=== PATIENT | male | born 1970 | race Caucasian/White ===

== ENCOUNTER 2020-05-09 10:53 | Outpatient (CLI) | payer MEDICAID | END 2020-05-09 10:54 | disposition critical access hospital (66) | LOC: EMS 10:53 | PROVIDERS: ATTEND Surgery | DX: T14.91XA Suicide attempt, initial encounter (principal); V58.3XXA Unspecified occupant of pick-up truck or van injured in noncollision transport accident in nontraffic accident, initial encounter; Y93.89 Activity, other specified; Y92.008 Other place in unspecified non-institutional (private) residence as the place of occurrence of the external cause | CPT/HCPCS: A0425; A0429 ==

== ENCOUNTER 2020-05-09 11:28 | Emergency (ER) | payer MEDICAID, OTHER ==
--- NOTE | 2020-05-09 11:54 | ED Physician Documentation ---
PD HPI MHE - Stated complaint Stated Complaint: SI - Chief complaint Chief Complaint: MHE - History obtained from History obtained from: Patient, EMS - History of Present Illness Primary symptom: Suicide attempt, Depression, Other (He attempted suicide by a hose from his exhaust into his truck cab in his driveway. Bystanders saw the hose and called EMS and police. They found the patient awake but sleepy. He states he was trying to kill himself was a statement to police. 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 He denies any alcohol or substance abuse. He had gotten some pain pills from a friend and had taken those and attempted suicide by putting a hose from his exhaust into his truck cab.). No: Substance abuse - ETOH, Substance abuse - drugs (He states he did get some opioid tablets from a friend just this past evening. He denies any other recreational drug use.) Similar symptoms before: Has not had sx before Recently seen: Not recently seen (Denies any recent medical visits or counseling. Does not take any daily medicines.) Review of Systems Constitutional: denies: Fever, Chills Nose: denies: Rhinorrhea / runny nose, Congestion Throat: denies: Sore throat Respiratory: denies: Cough GI: denies: Nausea, Vomiting Neurologic: denies: Focal weakness, Numbness, Syncope, Altered mental status, Headache Psychiatric: reports: Depressed. denies: Homicidal, Delusions, Anxiety Immunocompromised: denies: Immunocompromised PD PAST MEDICAL HISTORY - Past Medical History Cardiovascular: Hypertension (not taking meds for years) Respiratory: None Neuro: None Endocrine/Autoimmune: None GI: Other (Diverticulosis) : None - Past Surgical History Past Surgical History: Yes Ortho: Arthroscopic surgery - Present Medications Home Medications: Ambulatory Orders Medication Instructions Recorded Confirmed Cyclobenzaprine [Flexeril] 10 mg PO TID PRN #20 tablet 03/04/16 HYDROcod/ACETAM 5/325 [Fisher 5/325] 1 - 2 ea PO Q6H PRN #20 tablet 03/04/16 - Allergies Allergies/Adverse Reactions: Allergies Allergy/AdvReac Type Severity Reaction Status Date / Time No Known Drug Allergies Allergy Verified 03/04/16 08:57 - Living Situation Living Situation: reports: Alone Living Arrangement: reports: At home - Social History Does the pt smoke?: Yes Smoking Status: Current every day smoker Does the pt drink ETOH?: No Does the pt have substance abuse?: No - Family History Family history: reports: Non contributory PD ED PE NORMAL - Vitals Vital signs reviewed: Yes - General General: Alert and oriented X 3 (slightly sleepy, but conversant. ), No acute distress, Well developed/nourished - HEENT HEENT: Ears normal, Moist mucous membranes, Pharynx benign - Neck Neck: Supple, no meningeal sign, No adenopathy - Cardiac Cardiac: RRR, No murmur - Respiratory Respiratory: Clear bilaterally (Does not have any wheezing nor prolonged expiratory phase.) - Abdomen Abdomen: Soft, Non tender - Derm Derm: Normal color, Warm and dry - Extremities Extremities: Normal ROM s pain, No edema, No calf tenderness / cord - Neuro Neuro: Alert and oriented X 3, proposal manager 2-12 intact, No motor deficit, No sensory deficit, Normal speech Eye Opening: Spontaneous Motor: Obeys Commands Verbal: Oriented GCS Score: 15 - Psych Psych: Normal mood (depressed). No: Normal affect (flat, depressed) Results - Vitals Vitals: Vital Signs - 24 hr 05/09/20 05/09/20 05/09/20 11:29 11:53 12:23 Temperature 37 C Heart Rate 84 89 89 Respiratory 16 23 14 Rate Blood Pressure 150/103 H 161/101 H 146/105 H O2 Saturation 92 100 100 05/09/20 05/09/20 05/09/20 12:30 13:00 13:30 Temperature Heart Rate 87 76 80 Respiratory 12 12 12 Rate Blood Pressure 159/100 H 162/137 H 187/164 H O2 Saturation 99 95 93 05/09/20 05/09/20 05/09/20 14:00 14:30 15:00 Temperature Heart Rate 84 69 80 Respiratory 16 14 19 Rate Blood Pressure 169/94 H 128/105 H 144/116 H O2 Saturation 92 94 96 05/09/20 05/09/20 15:30 16:00 Temperature Heart Rate 79 72 Respiratory 15 15 Rate Blood Pressure 156/103 H 153/116 H O2 Saturation 96 98 Oxygen O2 Source Nasal cannula - EKG (time done) 12:16 Rate: Rate (enter#) (81) Rhythm: NSR Bend: Normal Intervals: Normal [place]. No: Prolonged QT QRS: Normal Ischemia: Normal ST segments. No: ST elevation c/w ischemia, ST depression - Labs Labs: Laboratory Tests 05/09/20 05/09/20 05/09/20 12:05 12:05 12:05 WBC 11.2 H RBC 4.87 Hgb 16.1 Hct 47.0 MCV 96.5 H MCH 33.1 H MCHC 34.3 RDW 12.5 Plt Count 339 MPV 9.3 Neut # (Auto) 8.4 H Lymph # (Auto) 1.5 Caswell # (Auto) 1.2 H Eos # (Auto) 0.0 Baso # (Auto) 0.1 Absolute Nucleated RBC 0.00 Nucleated RBC % 0.0 Bld Gas Analysis Time Sample Site ABG pH ABG pCO2 ABG pO2 ABG HCO3 ABG Total CO2 ABG O2 Saturation ABG Oximetry Spot Check ABG Base Excess ABG Hemoglobin ABG Oxyhemoglobin ABG Carboxyhemoglobin ABG Methemoglobin Dejan Test O2 Delivery Device O2 Liters/Min Sodium 134 L Potassium 3.3 L Chloride 95 L Carbon Dioxide 25 Anion Gap 14.0 H BUN 10 Creatinine 1.4 H Estimated GFR (MDRD) 54 L Glucose 113 H Calcium 9.0 Total Bilirubin 0.9 AST 36 ALT 42 Alkaline Phosphatase 69 Total Protein 7.4 Albumin 4.4 Globulin 3.0 Albumin/Globulin Ratio 1.5 Lipase 19 L TSH 0.89 Urine Color Urine Clarity Urine pH Ur Specific Corral Urine Protein Urine Glucose (UA) Urine Ketones Urine Occult Blood Urine Nitrite Urine Bilirubin Urine Urobilinogen Ur Leukocyte Esterase Ur Microscopic Review Urine Culture Comments Salicylates < 6.0 Urine Opiates Screen Ur Oxycodone Screen Urine Methadone Screen Ur Propoxyphene Screen Acetaminophen 11 Ur Barbiturates Screen Ur Tricyclics Screen Ur Phencyclidine Scrn Ur Amphetamine Screen U Methamphetamines Scrn U Benzodiazepines Scrn Urine Cocaine Screen U Cannabinoids Screen Ethyl Alcohol < 5.0 SARS-CoV-2 (PCR) 05/09/20 05/09/20 05/09/20 12:55 12:55 13:19 WBC RBC Hgb Hct MCV MCH MCHC RDW Plt Count MPV Neut # (Auto) Lymph # (Auto) Cas[place] # (Auto) Eos # (Auto) Baso # (Auto) Absolute Nucleated RBC Nucleated RBC % Bld Gas Analysis Time 1255 1255 Sample Site RIGHT RADIAL ABG pH 7.30 L ABG pCO2 50 H ABG pO2 223 H* ABG HCO3 23.6 ABG Total CO2 25.2 ABG O2 Saturation 99 H ABG Oximetry Spot Check ABG Base Excess -3.4 L ABG Hemoglobin 16.9 ABG Oxyhemoglobin 97 ABG Carboxyhemoglobin 1.2 ABG Methemoglobin 0.4 Dejan Test POSITIVE O2 Delivery Device NON REBREATHER MASK O2 Liters/Min 13.00 Sodium Potassium Chloride Carbon Dioxide Anion Gap BUN Creatinine Estimated GFR (MDRD) Glucose Calcium Total Bilirubin AST ALT Alkaline Phosphatase Total Protein Albumin Globulin Albumin/Globulin Ratio Lipase TSH Urine Color DARK YELLOW Urine Clarity CLEAR Urine pH 5.5 Ur Specific [place] 1.025 Urine Protein NEGATIVE Urine Glucose (UA) NEGATIVE Urine Ketones TRACE Urine Occult Blood NEGATIVE Urine Nitrite NEGATIVE Urine Bilirubin NEGATIVE Urine Urobilinogen 0.2 (NORMAL) Ur Leukocyte Esterase NEGATIVE Ur Microscopic Review NOT INDICATED Urine Culture Comments NOT INDICATED Salicylates Urine Opiates Screen POSITIVE H Ur Oxycodone Screen POSITIVE H Urine Methadone Screen NEGATIVE Ur Propoxyphene Screen NEGATIVE Acetaminophen Ur Barbiturates Screen NEGATIVE Ur Tricyclics Screen NEGATIVE Ur Phencyclidine Scrn NEGATIVE Ur Amphetamine Screen NEGATIVE U Methamphetamines Scrn POSITIVE H U Benzodiazepines Scrn POSITIVE H Urine Cocaine Screen NEGATIVE U Cannabinoids Screen NEGATIVE Ethyl Alcohol SARS-CoV-2 (PCR) 05/09/20 05/09/20 13:21 14:27 WBC RBC Hgb Hct MCV MCH MCHC RDW Plt Count MPV Neut # (Auto) Lymph # (Auto) [place] # (Auto) Eos # (Auto) Baso # (Auto) Absolute Nucleated RBC Nucleated RBC % Bld Gas Analysis Time 1427 Sample Site RIGHT RADIAL ABG pH 7.30 L ABG pCO2 50 H ABG pO2 98 ABG HCO3 23.9 ABG Total CO2 25.5 ABG O2 Saturation 97 ABG Oximetry Spot Check 96 ABG Base Excess -3.2 L ABG Hemoglobin ABG Oxyhemoglobin ABG Carboxyhemoglobin ABG Methemoglobin Dejan Test POSITIVE O2 Delivery Device NASAL CANNULA O2 Liters/Min 2.00 Sodium Potassium Chloride Carbon Dioxide Anion Gap BUN Creatinine Estimated GFR (MDRD) Glucose Calcium Total Bilirubin AST ALT Alkaline Phosphatase Total Protein Albumin Globulin Albumin/Globulin Ratio Lipase TSH Urine Color Urine Clarity Urine pH Ur Specific [place] Urine Protein Urine Glucose (UA) Urine Ketones Urine Occult Blood Urine Nitrite Urine Bilirubin Urine Urobilinogen Ur Leukocyte Esterase Ur Microscopic Review Urine Culture Comments Salicylates Urine Opiates Screen Ur Oxycodone Screen Urine Methadone Screen Ur Propoxyphene Screen Acetaminophen Ur Barbiturates Screen Ur Tricyclics Screen Ur Phencyclidine Scrn Ur Amphetamine Screen U Methamphetamines Scrn U Benzodiazepines Scrn Urine Cocaine Screen U Cannabinoids Screen Ethyl Alcohol SARS-CoV-2 (PCR) NOT DETECTED PD MEDICAL DECISION MAKING - ED course Complexity details: reviewed results (His carbon monoxide level is low at 1.5. This was after a brief period of time on high flow oxygen here in the ER. He is slightly acidotic and we will recheck that at an interval.), re-evaluated patient (Is somewhat sleepy but awake and conversant. Blood gas showed a low carbon monoxide level. He did show some mild hypoventilation likely related to the coingestions with some medication. He does not appear hypoventilating enough to need respiratory support. He should improve with time. ), considered differential (Patient with suicide attempt by asphyxiation from his tailpipe was found by bystanders. The sounds like a sincere high risk attempt so we will have social work and likely [facility] involvement. We will see if he would like voluntary hospitalization or alternatively would be involuntary.), d/w patient ED course: He has a depressed affect and had a serious suicide attempt that was discovered by bystanders. He did not have any self rescue mechanism. He is at high risk for further self-harm and will need hospitalization. He can have social work discuss with him whether he would be voluntary or involuntary. Departure - Departure Clinical Impression: Suicide attempt, Sleepiness, Suicide attempt by carbon monoxide inhalation Depression Qualifiers: Depression Type: unspecified Qualified Code(s): F32.9 - Major depressive disorder, single episode, unspecified Condition: Stable Record reviewed to determine appropriate education?: Yes
[2020-05-09 12:21] LABS: BASOPHILS # (AUTO) 0.1 10^3/uL (0.0-0.1); BASOPHILS % (AUTO) 0.5 %; EOSINOPHILS % (AUTO) 0.4 %; HGB - HEMOGLOBIN 16.1 g/dL (14.0-18.0); LYMPHOCYTES # (AUTO) 1.5 10^3/uL (1.5-3.5); LYMPHOCYTES % (AUTO) 13.3 %; MEAN CORPUSCULAR HEMOGLOBIN 33.1 pg (27.0-31.0); MEAN CORPUSCULAR HGB CONC 34.3 g/dL (32.0-36.0); MEAN CORPUSCULAR VOLUME 96.5 fL (80.0-94.0); MEAN PLATELET VOLUME 9.3 fL (7.4-11.4); MONOCYTES # (AUTO) 1.2 10^3/uL (0.0-1.0); MONOCYTES % (AUTO) 10.9 %; NEUTROPHILS # (AUTO) 8.4 10^3/uL (1.5-6.6); NEUTROPHILS % (AUTO) 74.5 %; PLT - PLATELET COUNT 339 10^3/uL (130-450); RED BLOOD COUNT 4.87 10^6/uL (4.70-6.10); RED CELL DISTRIBUTION WIDTH 12.5 % (12.0-15.0); WHITE BLOOD COUNT 11.2 x10^3/uL (4.8-10.8)
[2020-05-09 12:37] LABS: ACETAMINOPHEN 11 ug/mL (10-30); ALBUMIN 4.4 g/dL (3.2-5.5); ALBUMIN/GLOBULIN RATIO 1.5 (1.0-2.2); ALKALINE PHOSPHATASE 69 IU/L (42-121); ALT ALANINE AMINOTRANSFERASE 42 IU/L (10-60); AST ASPARTATE AMINOTRANSFERASE 36 IU/L (10-42); BILIRUBIN,TOTAL 0.9 mg/dL (0.2-1.0); BUN - BLOOD UREA NITROGEN 10 mg/dL (6-20); CARBON DIOXIDE - CO2 25 mmol/L (21-32); CHLORIDE 95 mmol/L (101-111); CREATININE 1.4 mg/dL (0.6-1.2); GLUCOSE 113 mg/dL (70-100); LIPASE 19 U/L (22-51); SALICYLATE < 6.0 mg/dL; SODIUM 134 mmol/L (135-145); TOTAL PROTEIN 7.4 g/dL (6.7-8.2)
[2020-05-09 13:01] LABS: ABG PCO2 50 mmHg (34-45)
[2020-05-09 13:02] LABS: ABG BASE EXCESS -3.4 mmol/L (-2.0-3.0); ABG HCO3 23.6 mmol/L (22.0-26.0); ABG OXYGEN SATURATION 99 % (94-98); ABG TCO2 25.2 MMOL/L (21.0-29.0); ALLEN TEST POSITIVE
[2020-05-09 13:03] LABS: ABG PO2 223 mmHg (80-100)
[2020-05-09 13:04] LABS: CARBOXYHEMOGLOBIN ARTERIAL 1.2 % (0-1.5); HEMOGLOBIN TOTAL, ARTERIAL WB 16.9 g/dL (12.0-18.0)
[2020-05-09 13:30] LABS: MUDS CUTOFF CONCENTRATIONS CUTOFF CONC BELOW:
[2020-05-09 13:33] LABS: GLUCOSE, URINE (UA) NEGATIVE (NEGATIVE); KETONES,URINE (UA) TRACE mg/dL (NEGATIVE); LEUKOCYTE ESTERASE, URINE NEGATIVE (NEGATIVE); NITRITE,URINE NEGATIVE (NEGATIVE); OCCULT BLOOD,URINE NEGATIVE (NEGATIVE); PH,URINE 5.5 PH (5.0-7.5); PROTEIN,URINE NEGATIVE (NEGATIVE); UROBILINOGEN,URINE 0.2 (NORMAL) E.U./dL (NORMAL)
[2020-05-09 13:38] LABS: BILIRUBIN,URINE NEGATIVE (NEGATIVE); CLARITY,URINE CLEAR (CLEAR); ICTOTEST,URINE NEGATIVE
[2020-05-09 13:44] LABS: AMPHETAMINE SCREEN,URINE NEGATIVE (NEGATIVE); BENZODIAZEPINES SCREEN, URINE POSITIVE (NEGATIVE); COCAINE SCREEN URINE NEGATIVE (NEGATIVE); METHADONE SCREEN, URINE NEGATIVE (NEGATIVE); METHAMPHETAMINES SCREEN, URINE POSITIVE (NEGATIVE); OPIATE SCREEN, URINE POSITIVE (NEGATIVE); OXYCODONE SCREEN, URINE POSITIVE (NEGATIVE); PROPOXYPHENE SCREEN, URINE NEGATIVE (NEGATIVE); TRICYCLIC ANTIDEPRESSANT,URINE NEGATIVE (NEGATIVE)
[2020-05-09] MEDS: LACTATED RINGERS 1,000 ML IV STA (14:17)
[2020-05-09 14:34] LABS: ABG BASE EXCESS -3.2 mmol/L (-2.0-3.0); ABG HCO3 23.9 mmol/L (22.0-26.0); ABG OXYGEN SATURATION 97 % (94-98); ABG PCO2 50 mmHg (34-45); ABG PO2 98 mmHg (80-100); ABG TCO2 25.5 MMOL/L (21.0-29.0); ALLEN TEST POSITIVE
[2020-05-09] MEDS: NALOXONE 0.4 MG/ML VIAL IVP STA (15:15)
[2020-05-09] MEDS: POTASSIUM CHLORIDE 20 MEQ TABLET PO STA (19:41)
--- NOTE | 2020-05-09 21:52 | ED Physician Documentation ---
ED Addendum - Addendum Addendum: 05/09/20 21:51 49-year-old male as a voluntary psychiatric admit. He is accepted to [facility] in [place] by JOELLEN Mccormick forms completed. Departure - Departure Disposition: [facility] Hosp/Unit DC/Xfer Clinical Impression: Suicide attempt, Suicide attempt by carbon monoxide inhalation Depression Qualifiers: Depression Type: unspecified Qualified Code(s): F32.9 - Major depressive disorder, single episode, unspecified Condition: Stable
[2020-05-10 00:11] VITALS: BP 138/78
== END 2020-05-10 00:05 ==
LOC: EDUNIT# → ED 11:28
DX: T14.91XA Suicide attempt, initial encounter (principal); V58.3XXA Unspecified occupant of pick-up truck or van injured in noncollision transport accident in nontraffic accident, initial encounter; Y93.89 Activity, other specified; Y92.008 Other place in unspecified non-institutional (private) residence as the place of occurrence of the external cause; F32.9 Major depressive disorder, single episode, unspecified; R40.0 Somnolence; F17.200 Nicotine dependence, unspecified, uncomplicated; Z20.828 Contact with and (suspected) exposure to other viral communicable diseases
CPT/HCPCS: 36415; 36600; 80053; 80306; 80307; 80320; 80329; 81003; 82375; 82803; 83690; 84443; 85025; 87635; 93005; 96361; 96374; 99283; 99285; A9270; J7120; 81001; 87086

== ENCOUNTER 2020-06-12 21:33 | Outpatient (CLI) | payer MEDICAID | END 2020-06-12 21:34 | disposition home or self-care (01) | LOC: EMS 21:33 | PROVIDERS: ATTEND Surgery | DX: Y93.89 Activity, other specified; Y92.008 Other place in unspecified non-institutional (private) residence as the place of occurrence of the external cause ==